=== PATIENT | female | born 1930 | race Two or more races ===

== ENCOUNTER → 2018-12-30 | Outpatient (CLI) | payer OTHER ==
[~2018-12-30] MED LIST: AMOX TR K PO; LIPITOR20 MG PO; ULTRAM ER100 MG PO
== END | disposition home or self-care (01) ==
LOC: RAD 10:00 → TOM 10:00 → MAMO-SONO 10:06 → RAD 10:06 → MAMO-SONO 10:45
DX: C50.811 Malignant neoplasm of overlapping sites of right female breast (principal); Z12.31 Encounter for screening mammogram for malignant neoplasm of breast; Z87.898 Personal history of other specified conditions

== ENCOUNTER → 2019-01-04 | Outpatient (CLI) | payer OTHER | END | disposition home or self-care (01) | LOC: NUCLEAR 09:00 | DX: C50.811 Malignant neoplasm of overlapping sites of right female breast (principal) | CPT/HCPCS: 78816; A9552 ==

== ENCOUNTER 2019-01-20 11:54 | Outpatient (CLI) | payer OTHER | END 2019-01-20 12:11 | disposition home or self-care (01) | LOC: SONOGRAMA 11:54 | DX: M54.5 Low back pain (principal); E78.49 Other hyperlipidemia; I10 Essential (primary) hypertension; E55.9 Vitamin D deficiency, unspecified; E66.8 Other obesity; M89.8X8 Other specified disorders of bone, other site; E11.51 Type 2 diabetes mellitus with diabetic peripheral angiopathy without gangrene; K21.9 Gastro-esophageal reflux disease without esophagitis; M54.14 Radiculopathy, thoracic region; M15.8 Other polyosteoarthritis; B02.8 Zoster with other complications; B02.29 Other postherpetic nervous system involvement; E04.2 Nontoxic multinodular goiter ==

== ENCOUNTER → 2020-05-15 | Outpatient (CLI) | payer OTHER | END | disposition home or self-care (01) | LOC: SONOGRAMA 14:00 → MAMO-SONO 14:15 | PROVIDERS: ATTEND Specialist | DX: E04.2 Nontoxic multinodular goiter (principal) ==

== ENCOUNTER 2020-12-06 09:56 | Outpatient (CLI) | payer OTHER | END 2020-12-06 10:05 | disposition home or self-care (01) | LOC: RX STUDY 09:56 | PROVIDERS: ATTEND Internal Medicine Gastroenterology | DX: R13.0 Aphagia (principal) ==

== ENCOUNTER 2021-02-28 12:31 | Outpatient (CLI) | payer OTHER | END 2021-02-28 12:45 | disposition home or self-care (01) | LOC: RAD 12:31 | PROVIDERS: ATTEND Ophthalmology | DX: I10 Essential (primary) hypertension (principal); Z01.811 Encounter for preprocedural respiratory examination ==

== ENCOUNTER 2021-04-05 13:58 | Outpatient (CLI) | payer OTHER | END 2021-04-05 14:06 | disposition home or self-care (01) | LOC: TOM 13:58 | PROVIDERS: ATTEND Psychiatry & Neurology Neurology | DX: G31.84 Mild cognitive impairment of uncertain or unknown etiology (principal) ==

== ENCOUNTER 2021-12-04 14:27 | Outpatient (CLI) | payer OTHER | END 2021-12-04 14:34 | disposition home or self-care (01) | LOC: SONOGRAMA 14:27 | PROVIDERS: ATTEND Specialist | DX: E04.2 Nontoxic multinodular goiter (principal) ==

== ENCOUNTER 2022-01-22 13:15 | Outpatient (CLI) | payer OTHER | END 2022-01-22 13:44 | disposition home or self-care (01) | LOC: MAMO-SONO 13:15 | PROVIDERS: ATTEND Internal Medicine Hematology & Oncology | DX: Z12.31 Encounter for screening mammogram for malignant neoplasm of breast (principal); N63.0 Unspecified lump in unspecified breast; N64.4 Mastodynia ==

== ENCOUNTER → 2022-01-25 | Outpatient (CLI) | payer OTHER | END | disposition home or self-care (01) | LOC: NUCLEAR 13:15 | PROVIDERS: ATTEND Internal Medicine Hematology & Oncology | DX: M81.0 Age-related osteoporosis without current pathological fracture (principal) ==

== ENCOUNTER → 2022-02-05 | Outpatient (CLI) | payer OTHER | END | disposition home or self-care (01) | LOC: NUCLEAR 02-01 08:00 | PROVIDERS: ATTEND Internal Medicine Hematology & Oncology | DX: C50.811 Malignant neoplasm of overlapping sites of right female breast (principal); E03.8 Other specified hypothyroidism; E78.2 Mixed hyperlipidemia | CPT/HCPCS: 78816; A9552 ==

== ENCOUNTER 2022-03-14 13:55 | Outpatient (CLI) | payer OTHER | END 2022-03-14 14:03 | disposition home or self-care (01) | LOC: RAD 13:55 | PROVIDERS: ATTEND Orthopaedic Surgery | DX: M25.532 Pain in left wrist (principal); M25.561 Pain in right knee ==

== ENCOUNTER → 2022-03-15 09:00 | Outpatient (CLI) | payer OTHER | END | disposition home or self-care (01) | LOC: LAB 09:00 | PROVIDERS: ATTEND Orthopaedic Surgery | DX: E55.9 Vitamin D deficiency, unspecified (principal); M85.9 Disorder of bone density and structure, unspecified; E56.1 Deficiency of vitamin K; E21.3 Hyperparathyroidism, unspecified; E88.9 Metabolic disorder, unspecified; M81.8 Other osteoporosis without current pathological fracture ==